=== PATIENT | male | born 1965 | race Caucasian/White ===

== ENCOUNTER 2018-05-25 22:05 | Emergency (ER) | payer OTHER, SELFPAY ==
[2018-05-25 22:06] VITALS: BP 179/113; PULSE 107; RESP 19; TEMP 36.8; O2SAT 89; BMI 25.7
[2018-05-25] MEDS: Ipratropium/Albuterol Sulfate 3 ML AMPUL.NEB INHALATION (22:20)
[2018-05-25] MEDS: Albuterol 2.5 MG/3 ML VIAL.NEB. INHALATION ×3 (22:20→22:42)
--- NOTE | 2018-05-25 22:22 | EKG12_ITS ---
Test Reason : SOB Blood Pressure : / mmHG Vent. Rate : 105 BPM Atrial Rate : 105 BPM P-R Int : 134 ms QRS Dur : 090 ms QT Int : 350 ms P-R-T Axes : 086 082 055 degrees QTc Int : 462 ms Sinus tachycardia Otherwise normal ECG Confirmed by NIKKI BASS, LEESA ([id number]), desk editor KASANDRA HUMMEL ([id number]) on 05/28/2018 1:43:06 PM Referred By: BISI Confirmed By:LEESA JORDAN MD
--- NOTE | 2018-05-25 22:23 | ED.VIS.GEN ---
History of Present Illness Chief Complaint: Shortness of Breath Informant: Patient Narrative: She is been having frequent asthma flares over the last 3 months. He has been on prednisone for 3 different burst treatments with 3 different antibiotics. The last treatment was last week. They recently moved into apartment about 5 months ago and since the winter started he has not been able to get his asthma under control. He has saw his doctor in the office multiple times. He is on an inhaled steroid they have albuterol nebulizers at home. His last nebulizer treatment was approximately 5 hours ago. He was feeling okay today and then had an exacerbation this evening. No fevers or chills. He stated that he has had difficulty with his asthma for the last 90 days and thinks that approximately 90% of them were with wheezing. He is never really had an exacerbation like this in the past. He has been under control for several years. He thinks there might be something in the apartment that is setting off his asthma. Current severity is moderate to severe. Past Medical History - Allergies and Home Meds Allergies/Adverse Reactions: Allergies No Known Allergies Allergy (Verified 05/25/18 22:11) Primary Care Physician: Kayode Hair,Out of [NON-STAFF] - Prior records reviewed: Yes Past Medical History: - - Asthma Lives: Spouse/ Significant Other Smoking Status: Never smoker Alcohol: None Drugs: None Review of Systems General: Denies: Chills, Fever, Sweats Eyes: Denies: Visual changes - bilaterally, Diplopia ENT: Denies: Rhinorrhea, Sore throat Cardiovascular: Denies: Chest pain, Palpitations Respiratory: Reports: Dyspnea, Cough. Denies: Dyspnea on exertion Gastrointestinal: Denies: Abdominal pain, Nausea, Vomiting, Diarrhea, Melena, Hematochezia Genitourinary: Denies: Dysuria, Hematuria, Frequency Musculoskeletal: Denies: Back pain, Extremity Pain Skin: Denies: Rash, Wounds Neurological: Denies: Headache, Weakness, Numbness Physical Exam Vital Signs/Narrative: Vital Signs Temp Pulse Resp BP Pulse Ox 05/25/18 22:06 98.2 F 107 H 19 H 179/113 H 89 General: Well nourished, Well developed, No Acute Distress Head: Normocephalic, Atraumatic Eyes: Perrl, EOMI ENT: Moist mucous membranes, No rhinorrhea Neck: Supple, Nontender Cardiovascular: Regular rhythm, No murmurs, Tachycardia. Negative for: Regular rate Respiratory: Chest nontender, Wheezing - Diffuse wheezes throughout all lung perea with mild distress secondary to the tight wheezing.. Negative for: Rales Abdomen: Soft, Nontender, Nondistended, Normal bowel sounds Back: Nontender, Normal Inspection Extremities: Nontender, No edema Skin: Normal color, No rash Neurological: Alert, Oriented x3, Cranial nerves II-XII grossly intact, Normal Strength, Normal Sensation Psychological: Normal affect, Normal Mood Diagnostic/Tx/Re-eval Impressions Chest X-Ray 05/25/18 22:55 IMPRESSION: No acute cardiopulmonary disease. Electronically Signed: Dashawn Escoto MD at 0:06 EDT , Service support , 05/25/18 22:55 Chest PA and Lateral [RAD] Stat Laboratory Results 05/25/18 05/25/18 22:10 22:10 WBC 14.6 H RBC 5.20 Hgb 15.8 Hct 47.1 MCV 90.6 MCH 30.4 MCHC 33.5 RDW 12.9 RDW Differential 42.1 Plt Count 365 MPV 9.1 Immature Gran % (Auto) 0.800 Neut % (Auto) 65.1 Lymph % (Auto) 20.8 Sunflower % (Auto) 8.6 Eos % (Auto) 4.4 Baso % (Auto) 0.3 Absolute Neuts (auto) 9.5 H Absolute Lymphs (auto) 3.04 Total Counted Not Reportable Sodium 142 Potassium 3.8 Chloride 107 Carbon Dioxide 27.0 Anion Gap 8 BUN 19 H Creatinine 1.07 Estim Creat Clear Calc 85.04 Est GFR (MDRD) Af Amer 93 Est GFR (MDRD) Non-Af 77 BUN/Creatinine Ratio 17.8 Glucose 98 Calcium 8.9 Troponin I < 0.015 - EKG Initial EKG Interpretation: Sinus Tachycardia - Rate of 105. No acute ischemic findings. - Medical Decision Making Time the patient is having severe asthma bronchospasm. Given albuterol nebulizer DuoNeb treatment as well as albuterol nebulizer treatments. Given prednisone. Lab work and chest x-ray obtained. See above for results. Slight leukocytosis. Chest x-ray negative. Patient was given 5 albuterol treatments total and 1 Atrovent. He is resting comfortably with no wheezing afterwards. He required oxygen as well. Pulse ox 96% on room air afterwards. We will continue prednisone and given his first dose here. At this time I think he is having asthma exacerbation. He is following up with an tariff clerk soon. ED Disposition - Plan for ED Patient: Disposition: Home or Assisted Living Diagnosis: Acute asthma exacerbation Instructions: Understanding Asthma Prescriptions: predniSONE tablet 60 mg PO DAILY #15 tab Referrals: [facility] Doctor,Out of [NON-STAFF] -
[2018-05-25 22:25] VITALS: PULSE 118; RESP 26
[2018-05-25 22:34] LABS: Absolute Lymphocyte Count 3.04 X10^3/ul (0.83-4.51); Absolute Neutrophil Count 9.5 X10^3/uL (2.0-7.7); Basophil# 0.04 X10^3/uL; Basophil% 0.3 % (0-1); Eosinophil# 0.65 X10^3/uL; Eosinophils% 4.4 % (0-5); Hematocrit 47.1 % (40-54); Hemoglobin 15.8 g/dl (13.0-16.5); Lymphocyte # 3.04 X10^3/ul (4.0); Lymphocyte % 20.8 % (19-41); Mean Corp Hgb Conc 33.5 g/gl (32-36); Mean Corpuscular Hgb 30.4 pg (27.0-32.0); Mean Corpuscular Volume 90.6 fL (80-94); Mean Platelet Vol. 9.1 fl (6.2-12.0); Monocyte# 1.26 X10^3/uL; Monocyte% 8.6 % (0-10); Neutrophil # 9.53 X10^3/uL (2.7-7.7); Neutrophil % 65.1 % (47-70); Platelet Count 365 K/mm3 (150-450); RBC Distribution Width CV 12.9 % (11.6-14.6); RBC Distribution Width SD 42.1 fl (35.1-43.9); White Blood Count 14.6 K/mm3 (4.4-11.0)
[2018-05-25] MEDS: predniSONE 20 MG Tablet 60 MG PO (22:34)
[2018-05-25 22:35] VITALS: BP 149/103; PULSE 113; PULSE 115; RESP 20; RESP 27; O2SAT 94
[2018-05-25 22:35] LABS: POSITIVE COUNT NO; POSITIVE DIFFERENTIAL NO; POSITIVE MORPHOLOGY NO
[2018-05-25 22:40] VITALS: PULSE 118; RESP 20
[2018-05-25 22:45] LABS: Anion Gap 8 (5-15); BUN 19 mg/dL (7-18); BUN/Creat Ratio 17.8 RATIO (10-20); Calcium,Total 8.9 mg/dL (8.5-10.1); Chloride 107 mmol/L (98-107); Creatinine, Serum 1.07 mg/dL (0.70-1.30); EST Glomerular Filtration Rate 77 mL/min (>60); Est Glom Filt Rate - Afr Amer 93 mL/min (>60); Estimated Creatinine Clearance 85.04 ml/min; Glucose 98 mg/dL (74-106); Potassium 3.8 mmol/L (3.5-5.1); Sodium Level 142 mmol/L (136-145)
--- NOTE | 2018-05-25 22:55 | RAD_ITS ---
STUDY: X-RAY CHEST REASON FOR EXAM: Male, 52 years old. Shortness of breath, chest pain. TECHNIQUE: PA and lateral chest. COMPARISON: None. FINDINGS: The lungs are clear and expanded. There is no demonstrated pleural abnormality. Normal size heart. Normal mediastinum and indra. Normal visualized pulmonary arteries. Normal visualized aortic arch and descending thoracic aorta. Normal visualized thoracic spine. Normal visualized ribs, clavicles, and shoulders. There is no demonstrated abnormality of the visualized soft tissue structures of the upper abdomen. RAD/Chest PA and Lateral IMPRESSION: No acute cardiopulmonary disease. Electronically Signed: Dashawn Escoto MD at 0:06 EDT , Service support ,
[2018-05-26 00:19] VITALS: PULSE 109; RESP 14
[2018-05-26] MEDS: Albuterol 2.5 MG/3 ML VIAL.NEB. INHALATION (00:19)
[2018-05-26 00:57] VITALS: BP 130/87; PULSE 102; RESP 18; O2SAT 96
== END 2018-05-26 00:57 | disposition home or self-care (01) ==
PROVIDERS: Emergency Provider Emergency Medicine
DX: J45.901 Unspecified asthma with (acute) exacerbation (principal); Z79.899 Other long term (current) drug therapy
CPT/HCPCS: 71046; 80048; 84484; 85025; 93005; 94640; 99284

== ENCOUNTER 2020-04-28 11:32 | Outpatient (RCR) | payer OTHER, SELFPAY | END 2020-04-28 23:59 | LOC: IMMUN 11:32 | PROVIDERS: PCP Family Medicine; Visit Provider Family Medicine | DX: Z23 Encounter for immunization (principal) | CPT/HCPCS: 0011A; 0012A ==